=== PATIENT | male | born 1965 | race African-American/Black ===

== ENCOUNTER 2016-08-29 12:52 | Inpatient (IN) | payer SELFPAY ==
--- NOTE | 2016-08-29 13:24 | ER Document Report ---
ED Medical Screen (RME) - General Chief Complaint: High Blood Sugar Stated Complaint: WEAKNESS/BLOOD SUGAR PROBLEMS Time Seen by Provider: 08/29/16 13:23 Mode of Arrival: Ambulatory Information source: Patient Notes: 50-year-old male no previous history of diabetes presents with complaints of increased urination and increased thirst and a blood sugar check by family member noting high. Patient admits to one episode of vomiting I have greeted and performed a rapid initial assessment of this patient. A comprehensive ED assessment and evaluation of the patient, analysis of test results and completion of the medical decision making process will be conducted by additional ED providers. PHYSICAL EXAMINATION: GENERAL: Well-appearing, well-nourished and in no acute distress. HEAD: Atraumatic, normocephalic. EYES: Pupils equal round and reactive to light, extraocular movements intact, sclera anicteric, conjunctiva are normal. ENT: Nares patent, oropharynx clear without exudates. Moist mucous membranes. NECK: Normal range of motion, supple without lymphadenopathy LUNGS: Breath sounds clear to auscultation bilaterally and equal. No wheezes rales or rhonchi. HEART: Regular rate and rhythm without murmurs ABDOMEN: Soft, nontender, nondistended abdomen. No guarding, no rebound. No masses appreciated. Musculoskeletal: Normal range of motion, no pitting or edema. No cyanosis. NEUROLOGICAL: Cranial nerves grossly intact. Normal speech, normal gait. Normal sensory, motor exams PSYCH: Normal mood, normal affect. SKIN: Warm, Dry, normal turgor, no rashes or lesions noted. TRAVEL OUTSIDE OF THE [place] IN LAST 30 DAYS: No - Related Data Allergies/Adverse Reactions: No Known Allergies Allergy (Verified 08/29/16 12:57) Past Medical History Renal/ Medical History: Denies: Hx Peritoneal Dialysis Physical Exam - Vital signs Vitals: Temp Pulse Resp BP Pulse Ox 98.0 F 134 H 20 128/86 H 99 08/29/16 12:58 08/29/16 12:58 08/29/16 12:58 08/29/16 12:58 08/29/16 12:58 Course - Vital Signs Vital signs: Temp Pulse Resp BP Pulse Ox 98.0 F 134 H 20 128/86 H 99 08/29/16 12:58 08/29/16 12:58 08/29/16 12:58 08/29/16 12:58 08/29/16 12:58
[2016-08-29 14:04] LABS: ABSOLUTE BASOPHILS # (AUTO) 0.1 10^3/uL (0.0-0.2); ABSOLUTE MONOCYTES (AUTO) 0.5 10^3/uL (0.1-1.4); ABSOLUTE NEUT (AUTO) 11.7 10^3/uL (1.7-8.2); BASOPHILS % (AUTO) 0.5 % (0-2); HEMATOCRIT 59.5 % (37.9-51.0); HEMOGLOBIN 19.6 g/dL (13.5-17.0); HGB HCT DIFFERENCE -0.7; LYMPHOCYTES % (AUTO) 7.5 % (13-45); MEAN CORPUSCULAR HEMOGLOBIN 29.5 pg (27.0-33.4); MEAN CORPUSCULAR VOLUME 90 fl (80-97); MONOCYTES % (AUTO) 3.6 % (3-13); RED BLOOD COUNT 6.64 10^6/uL (4.35-5.55); RED CELL DISTRIBUTION WIDTH 13.7 % (11.5-14.0); SEGMENTED NEUTROPHILS % (AUTO) 88.4 % (42-78); WHITE BLOOD COUNT 13.2 10^3/uL (4.0-10.5)
[2016-08-29 14:22] LABS: ALANINE AMINOTRANSFERASE 27 U/L (21-72); ALKALINE PHOSPHATASE 141 U/L (38-126); ASPARTATE AMINO TRANSFERASE 20 U/L (17-59); BILIRUBIN,DIRECT 0.6 mg/dL (0.0-0.4); BLOOD UREA NITROGEN 28 mg/dL (7-20); CALCIUM 9.9 mg/dL (8.4-10.2); CHLORIDE 96 mmol/L (98-107); CREATININE RESULT 1.58 mg/dL (0.52-1.25); TOTAL PROTEIN 9.3 g/dL (6.3-8.2)
[2016-08-29 14:34] LABS: GLUCOSE 411 mg/dL (75-110)
[2016-08-29 14:35] LABS: ANION GAP 32 (5-19); CARBON DIOXIDE 9 mmol/L (22-30); POTASSIUM 6.1 mmol/L (3.6-5.0)
[2016-08-29] MEDS ORDERED: INSULIN REG, HUMAN 100 UNIT/ML 3 ML VIAL (PYX) IV ONE (14:39)
[2016-08-29] MEDS ORDERED: ONDANSETRON HCL INJ/PF 4 MG/2 ML SDV IV ONE (14:45)
--- NOTE | 2016-08-29 14:47 | ER Document Report ---
ED General - General Chief Complaint: High Blood Sugar Stated Complaint: WEAKNESS/BLOOD SUGAR PROBLEMS Time Seen by Provider: 08/29/16 13:23 Mode of Arrival: Ambulatory Notes: The patient is a 50-year-old male, no known past medical history, presents with 3 episodes of nonbloody emesis, nausea, generalized weakness and polyuria over the past 2 days. He has never been diagnosed with diabetes, but has not seen a primary care physician in several years. He denies fevers, cough, shortness of breath, and dysuria, flank pain, chest pain, shortness of breath or hematemesis. TRAVEL OUTSIDE OF THE [place] IN LAST 30 DAYS: No - Related Data Allergies/Adverse Reactions: No Known Allergies Allergy (Verified 08/29/16 12:57) Past Medical History - General Information source: Patient - Social History Smoking Status: Current Every Day Smoker Family History: Reviewed & Not Pertinent Patient has suicidal ideation: No Patient has homicidal ideation: No Renal/ Medical History: Denies: Hx Peritoneal Dialysis Review of Systems - Review of Systems Notes: REVIEW OF SYSTEMS: CONSTITUTIONAL: -fevers, -chills EENT: -eye pain, -difficulty swallowing, -nasal congestion CARDIOVASCULAR:-chest pain, -syncope. RESPIRATORY: -cough, -SOB GASTROINTESTINAL: -abdominal pain, +nausea, +vomiting, -diarrhea GENITOURINARY: -dysuria, -hematuria MUSCULOSKELETAL: -back pain, -neck pain SKIN: -rash or skin lesions. HEMATOLOGIC: -easy bruising or bleeding. LYMPHATIC: -swollen, enlarged glands. NEUROLOGICAL: -altered mental status or loss of consciousness, -headache, - neurologic symptoms PSYCHIATRIC: -anxiety, -depression. ALL OTHER SYSTEMS REVIEWED AND NEGATIVE. Physical Exam - Vital signs Vitals: Temp Pulse Resp BP Pulse Ox 98.0 F 134 H 20 128/86 H 99 08/29/16 12:58 08/29/16 12:58 08/29/16 12:58 08/29/16 12:58 08/29/16 12:58 - Notes Notes: PHYSICAL EXAMINATION: GENERAL: Uncomfortable, ill-appearing HEAD: Atraumatic, normocephalic. EYES: Pupils equal round and reactive to light, extraocular movements intact, sclera anicteric, conjunctiva are normal. ENT: nares patent, oropharynx clear without exudates. Dry mucous membranes. NECK: Normal range of motion, supple without lymphadenopathy LUNGS: Breath sounds clear to auscultation bilaterally and equal. No wheezes rales or rhonchi. HEART: Tachycardia, regular rhythm ABDOMEN: Soft, nontender, normoactive bowel sounds. No guarding, no rebound. No masses appreciated. EXTREMITIES: Normal range of motion, no pitting or edema. No cyanosis. NEUROLOGICAL: Cranial nerves grossly intact. Normal speech, normal gait. Normal sensory, motor, and reflex exams. PSYCH: Normal mood, normal affect. SKIN: Warm, Dry, normal turgor, no rashes or lesions noted. Course - Re-evaluation Re-evalutation: Patient with new onset diabetes and DKA. No source of infection seen yet that may have triggered the DKA. Will provide fluids and begin insulin drip. Pt requires Inpatient Admission for further treatment and evaluation of his DKA. 08/29/16 16:[address] Holt and he has accepted patient to IMCU. Urine is still pending. Will treat for UTI if positive. - Vital Signs Vital signs: Temp Pulse Resp BP Pulse Ox 98.0 F 134 H 23 H 128/86 H 100 08/29/16 12:58 08/29/16 12:58 08/29/16 18:00 08/29/16 12:58 08/29/16 18:00 - Laboratory Result Diagrams: 08/29/16 13:43 08/29/16 13:43 Laboratory results interpreted by me: 08/29/16 08/29/16 08/29/16 13:43 13:43 13:43 WBC 13.2 H RBC 6.64 H Hgb 19.6 H Hct 59.5 H Seg Neutrophils % 88.4 H Lymphocytes % 7.5 L Absolute Neutrophils 11.7 H VBG pH VBG HCO3 Potassium 6.1 H* Chloride 96 L Carbon Dioxide 9 L* Anion Gap 32 H BUN 28 H Creatinine 1.58 H Est GFR ( Amer) 57 L Est GFR (Non-Af Amer) 47 L Glucose 411 H* POC Glucose Hemoglobin A1c % > 14.0 H Direct Bilirubin 0.6 H Alkaline Phosphatase 141 H Total Protein 9.3 H Urine Protein Urine Glucose (UA) Urine Ketones Urine Blood 08/29/16 08/29/16 08/29/16 15:09 15:45 16:44 WBC RBC Hgb Hct Seg Neutrophils % Lymphocytes % Absolute Neutrophils VBG pH 7.03 L* VBG HCO3 9.2 L Potassium Chloride Carbon Dioxide Anion Gap BUN Creatinine Est GFR ( Amer) Est GFR (Non-Af Amer) Glucose POC Glucose 340 H Hemoglobin A1c % Direct Bilirubin Alkaline Phosphatase Total Protein Urine Protein 100 H Urine Glucose (UA) >=500 H Urine Ketones 80 H Urine Blood MODERATE H 08/29/16 16:50 WBC RBC Hgb Hct Seg Neutrophils % Lymphocytes % Absolute Neutrophils VBG pH VBG HCO3 Potassium Chloride Carbon Dioxide Anion Gap BUN Creatinine Est GFR ( Amer) Est GFR (Non-Af Amer) Glucose POC Glucose 282 H Hemoglobin A1c % Direct Bilirubin Alkaline Phosphatase Total Protein Urine Protein Urine Glucose (UA) Urine Ketones Urine Blood - Diagnostic Test Radiology reviewed: Image reviewed, Reports reviewed Radiology results interpreted by me: CXR: NAD Critical Care Note - Critical Care Note Total time excluding time spent on procedures (mins): 45 Discharge - Discharge Clinical Impression: DKA (diabetic ketoacidoses) Qualifiers: Diabetes mellitus type: due to underlying condition Diabetes mellitus complication detail: without coma Qualified Code(s): E08.10 - Diabetes mellitus due to underlying condition with ketoacidosis without coma Condition: Serious Disposition: ADMITTED INPATIENT Admitting Provider: Hospitalist - [facility] Admitted: [facility]
[2016-08-29 15:26] LABS: VENOUS BLOOD HCO3 9.2 mmol/L (20-32); VENOUS BLOOD PCO2 35.7 mmHg (35-63)
[2016-08-29 15:28] LABS: VENOUS BLOOD PH 7.03 (7.30-7.42)
[2016-08-29] MEDS: NORMAL SALINE 1000 ML 1,000 ML IV PRN ×4 (15:31→16:40)
[2016-08-29] MEDS ORDERED: ALBUTEROL SULFATE 0.083% NEB 2.5 MG/3 ML AMPUL NEB PRN (16:51)
[2016-08-29] MEDS ORDERED: ONDANSETRON 4 MG TAB.RAPDIS PO PRN (16:51)
[2016-08-29] MEDS ORDERED: ONDANSETRON HCL INJ/PF 4 MG/2 ML SDV IV PRN (16:51)
[2016-08-29] MEDS ORDERED: NORMAL SALINE 1000 ML 1,000 ML IV PRN (16:51)
[2016-08-29] MEDS ORDERED: ACETAMINOPHEN 325 MG TABLET PO PRN (16:51)
[2016-08-29] MEDS ORDERED: DEXTROSE 50%-WATER 25 GM/50 ML DISP.SYRIN IV PRN ×2 (16:55)
[2016-08-29] MEDS ORDERED: DEXTROSE 40% GEL 15 GM TUBE PO PRN ×2 (16:55)
[2016-08-29] MEDS ORDERED: GLUCAGON,HUMAN RECOMB 1 MG INJ IM PRN (16:55)
[2016-08-29] MEDS ORDERED: NORMAL SALINE 100 ML with INSULIN REGULAR, HUMAN 100 UNIT IV PRN ×2 (16:55)
--- NOTE | 2016-08-29 17:15 | PDOC H&P ---
History of Present Illness Admission Date/PCP: 08/29/2016. No primary care doctor Patient complains of: Elevated blood sugars History of Present Illness: JUAN JOSE BRIDGES is a 50 year old male with no past medical history until 3 days ago when he was feeling poorly and his significant other checked his blood sugar. It read as high. He has been having problems with polyuria, polydipsia , polyphagia and a 25 pound weight loss over the last 2 months. The patient reports is also had anorexia for the last 2 days. The patient was found to have diabetic ketoacidosis emergency room with a bicarbonate of 9 on his admission labs. He denies any fevers or chills. He denies any shortness of breath. He denies any viral syndromes recently. His mother is a type I diabetic. Past Medical History Medical History: None Cardiac Medical History: Reports: None Pulmonary Medical History: Reports: None EENT Medical History: Reports: None Neurological Medical History: Reports: None Endocrine Medical History: Reports: None Renal/ Medical History: Reports: None Malignancy Medical History: Reports: None GI Medical History: Reports: None Musculoskeltal Medical History: Reports: None Skin Medical History: Reports: None Psychiatric Medical History: Reports: None Traumatic Medical History: Reports: None Hematology: Reports: None Infectious Medical History: Reports: None Past Surgical History Past Surgical History: Reports: Orthopedic Surgery - Knee surgery Social History Information Source: Patient Lives with: Spouse/Significant other Smoking Status: Current Every Day Smoker Frequency of Alcohol Use: Rare Hx Recreational Drug Use: No Drugs: None Hx Prescription Drug Abuse: No - Advance Directive Resuscitation Status: Full Code Family History Family History: Mother 72 alive and has diabetes. Father at age 54 from suicide. Parental Family History Reviewed: Yes Children Family History Reviewed: No Sibling(s) Family History Reviewed.: No Medication/Allergy Allergies/Adverse Reactions: No Known Allergies Allergy (Verified 08/29/16 12:57) Review of Systems Constitutional: PRESENT: weight loss - 25 pounds over the last 2 months.. ABSENT: chills, fever(s), headache(s) Eyes: ABSENT: visual disturbances Ears: ABSENT: hearing changes Cardiovascular: ABSENT: chest pain, dyspnea on exertion, edema, orthropnea, palpitations Respiratory: ABSENT: cough, hemoptysis Gastrointestinal: ABSENT: abdominal pain, constipation, diarrhea, hematemesis, hematochezia, nausea, vomiting Genitourinary: PRESENT: other - Polyuria. ABSENT: dysuria, hematuria Musculoskeletal: ABSENT: joint swelling Integumentary: ABSENT: rash, wounds Neurological: ABSENT: abnormal gait, abnormal speech, confusion, dizziness, focal weakness, syncope Psychiatric: ABSENT: anxiety, depression Endocrine: PRESENT: polydipsia, polyuria. ABSENT: cold intolerance, heat intolerance Hematologic/Lymphatic: ABSENT: easy bleeding, easy bruising Physical Exam Vital Signs: Temp Pulse Resp BP Pulse Ox 98.0 F 134 H 20 128/86 H 99 08/29/16 12:58 08/29/16 12:58 08/29/16 12:58 08/29/16 12:58 08/29/16 12:58 Intake & Output 08/28/16 08/29/16 08/30/16 06:59 06:59 06:59 Weight 71.8 kg General appearance: PRESENT: no acute distress Head exam: PRESENT: atraumatic, normocephalic Eye exam: PRESENT: conjunctiva pink, EOMI, PERRLA. ABSENT: scleral icterus Ear exam: PRESENT: normal external ear exam Mouth exam: PRESENT: moist, tongue midline Neck exam: ABSENT: carotid bruit, JVD, lymphadenopathy, thyromegaly Respiratory exam: PRESENT: clear to auscultation [place]anna. ABSENT: rales, rhonchi, wheezes Cardiovascular exam: PRESENT: RRR. ABSENT: diastolic murmur, rubs, systolic murmur Pulses: PRESENT: normal dorsalis pedis pul Vascular exam: PRESENT: normal capillary refill GI/Abdominal exam: PRESENT: normal bowel sounds, soft. ABSENT: distended, guarding, mass, organolmegaly, rebound, tenderness Rectal exam: PRESENT: deferred Extremities exam: ABSENT: calf tenderness, clubbing, pedal edema Neurological exam: PRESENT: alert, awake, oriented to person, oriented to place , oriented to time, oriented to situation, CN II-XII grossly intact. ABSENT: motor sensory deficit Psychiatric exam: PRESENT: appropriate affect, normal mood Skin exam: PRESENT: dry, intact, warm. ABSENT: cyanosis, rash Results Laboratory Results: 08/29/16 13:43 08/29/16 13:43 08/29/16 08/29/16 08/29/16 13:43 13:43 15:09 WBC 13.2 H RBC 6.64 H Hgb 19.6 H Hct 59.5 H MCV 90 MCH 29.5 MCHC 33.0 RDW 13.7 Plt Count 273 Seg Neutrophils % 88.4 H Lymphocytes % 7.5 L Monocytes % 3.6 Eosinophils % 0.0 Basophils % 0.5 Absolute Neutrophils 11.7 H Absolute Lymphocytes 1.0 Absolute Monocytes 0.5 Absolute Eosinophils 0.0 Absolute Basophils 0.1 VBG pH 7.03 L* VBG pCO2 35.7 VBG HCO3 9.2 L VBG Base Excess -21.0 Sodium 137.0 Potassium 6.1 H* Chloride 96 L Carbon Dioxide 9 L* Anion Gap 32 H BUN 28 H Creatinine 1.58 H Est GFR ( Amer) 57 L Est GFR (Non-Af Amer) 47 L Glucose 411 H* Calcium 9.9 Total Bilirubin 1.0 AST 20 ALT 27 Alkaline Phosphatase 141 H Total Protein 9.3 H Albumin 5.0 Assessment & Plan - Diagnosis (1) DKA (diabetic ketoacidoses) Qualifiers: Diabetes mellitus type: due to underlying condition Diabetes mellitus complication detail: without coma Qualified Code(s): E08.10 - Diabetes mellitus due to underlying condition with ketoacidosis without coma Is this a current diagnosis for this admission?: YesPlan: Patient has newly diagnosed diabetes. We will start on insulin drip and IV fluids. We'll check chemistries every 4 hours. He is family history of diabetes but no other medical problems. - Time Time Spent: 30 to 50 Minutes - Inpatient Certification Medical Necessity: Need For IV Fluids
[2016-08-29 17:33] LABS: APPEARANCE,URINE CLEAR; BILIRUBIN,URINE NEGATIVE (NEGATIVE); GLUCOSE, URINE >=500 mg/dL (NEGATIVE); KETONES,URINE 80 mg/dL (NEGATIVE); LEUKOCYTE ESTERASE,URINE NEGATIVE (NEGATIVE); NITRITE,URINE NEGATIVE (NEGATIVE); PROTEIN,URINE 100 mg/dL (NEGATIVE); URINE SPECIFIC GRAVITY 1.025; UROBILINOGEN,URINE NEGATIVE mg/dL (<2.0)
[2016-08-29] MEDS ORDERED: DEXTROSE 5%-1/2 NORMAL SALINE 1,000 ML IV PRN (19:21)
[2016-08-29 20:21] LABS: ANION GAP 17 (5-19); BLOOD UREA NITROGEN 25 mg/dL (7-20); CALCIUM 7.8 mg/dL (8.4-10.2); CHLORIDE 113 mmol/L (98-107); CREATININE RESULT 0.98 mg/dL (0.52-1.25); GLUCOSE 225 mg/dL (75-110); SODIUM 139.8 mmol/L (137-145)
[2016-08-29 20:39] LABS: POTASSIUM 5.1 mmol/L (3.6-5.0)
[2016-08-29 20:42] LABS: CARBON DIOXIDE 10 mmol/L (22-30)
[2016-08-29] MEDS: DEXTROSE 5%-1/2 NORMAL SALINE 1,000 ML IV PRN (23:23)
[2016-08-30 00:41] LABS: ANION GAP 11 (5-19); BLOOD UREA NITROGEN 23 mg/dL (7-20); CARBON DIOXIDE 16 mmol/L (22-30); CHLORIDE 113 mmol/L (98-107); CREATININE RESULT 0.94 mg/dL (0.52-1.25); GLUCOSE 134 mg/dL (75-110); POTASSIUM 4.9 mmol/L (3.6-5.0); SODIUM 140.2 mmol/L (137-145)
[2016-08-30] MEDS: DEXTROSE 5%-1/2 NORMAL SALINE 1,000 ML IV PRN (04:06)
[2016-08-30 04:48] LABS: ANION GAP 8 (5-19); BLOOD UREA NITROGEN 21 mg/dL (7-20); CARBON DIOXIDE 20 mmol/L (22-30); CHLORIDE 112 mmol/L (98-107); CREATININE RESULT 0.99 mg/dL (0.52-1.25); GLUCOSE 152 mg/dL (75-110); POTASSIUM 4.6 mmol/L (3.6-5.0); SODIUM 139.8 mmol/L (137-145)
[2016-08-30 04:58] LABS: HEMATOCRIT 43.8 % (37.9-51.0); HGB HCT DIFFERENCE 1.5; MEAN CORPUSCULAR HEMOGLOBIN 29.7 pg (27.0-33.4); MEAN CORPUSCULAR HGB CONC 34.4 g/dL (32.0-36.0); RED BLOOD COUNT 5.09 10^6/uL (4.35-5.55); RED CELL DISTRIBUTION WIDTH 13.2 % (11.5-14.0); WHITE BLOOD COUNT 10.5 10^3/uL (4.0-10.5)
[2016-08-30 05:07] LABS: HEMOGLOBIN 15.1 g/dL (13.5-17.0); MEAN CORPUSCULAR VOLUME 86 fl (80-97)
[2016-08-30] MEDS ORDERED: DEXTROSE 50%-WATER 25 GM/50 ML DISP.SYRIN IV PRN ×2 (05:27)
[2016-08-30] MEDS ORDERED: GLUCAGON,HUMAN RECOMB 1 MG INJ IM PRN (05:27)
[2016-08-30] MEDS ORDERED: DEXTROSE 40% GEL 15 GM TUBE PO PRN ×2 (05:27)
--- NOTE | 2016-08-30 08:18 | PDOC PROGRESS REPORT ---
Subjective Progress Note for:: 08/30/16 Subjective:: Patient feels generally better than he did on admission. He has no further vomiting. He still has some nausea. He denies fever, chills, chest pain, shortness of breath. Physical Exam Vital Signs: Temp Pulse Resp BP Pulse Ox 98.3 F 96 20 120/77 100 08/30/16 04:11 08/30/16 04:11 08/30/16 04:11 08/30/16 04:11 08/30/16 04:11 Intake & Output 08/29/16 08/30/16 08/31/16 06:59 06:59 06:59 Weight 73.4 kg GENERAL: No acute distress HEENT: Conjunctiva clear, nonicteric, moist mucous membranes, no JVD, midline trachea RESPIRATORY: Clear to auscultation bilaterally, no wheezes, no rhonchi CARDIAC: Regular rate and rhythm, no murmurs/gallops/rubs ABDOMEN: Soft, nondistended, nontender, positive bowel sounds, no rebound, no guarding EXTREMETIES: No edema, cyanosis, clubbing NEUROLOGIC: Alert, oriented to person/place/time, CN's grossly intact, no focal deficits SKIN: No rash, wounds PSYCH: Normal mood, normal affect Results Laboratory Results: 08/30/16 04:45 08/30/16 03:40 08/29/16 08/30/16 08/30/16 20:02 00:12 03:40 WBC RBC Hgb Hct MCV MCH MCHC RDW Plt Count Sodium 139.8 140.2 139.8 Potassium 5.1 H D 4.9 4.6 Chloride 113 H 113 H 112 H Carbon Dioxide 10 L* 16 L 20 L Anion Gap 17 11 8 BUN 25 H 23 H 21 H Creatinine 0.98 0.94 0.99 Est GFR ( Amer) > 60 > 60 > 60 Est GFR (Non-Af Amer) > 60 > 60 > 60 Glucose 225 H 134 H 152 H Calcium 7.8 L 8.0 L 8.0 L 08/30/16 08/30/16 03:40 04:45 WBC Cancelled 10.5 RBC Cancelled 5.09 Hgb Cancelled 15.1 D Hct Cancelled 43.8 MCV Cancelled 86 D MCH Cancelled 29.7 MCHC Cancelled 34.4 RDW Cancelled 13.2 Plt Count Cancelled 152 Sodium Potassium Chloride Carbon Dioxide Anion Gap BUN Creatinine Est GFR ( Amer) Est GFR (Non-Af Amer) Glucose Calcium Impressions: Chest X-Ray 08/29/16 14:45 IMPRESSION: NO ACUTE RADIOGRAPHIC FINDING IN THE CHEST. Assessment & Plan - Diagnosis (1) DKA (diabetic ketoacidoses) Qualifiers: Diabetes mellitus type: due to underlying condition Diabetes mellitus complication detail: without coma Qualified Code(s): E08.10 - Diabetes mellitus due to underlying condition with ketoacidosis without coma Is this a current diagnosis for this admission?: YesPlan: Patient has new onset type I diabetes. DKA has now resolved and insulin drip has been discontinued. Patient has been started on 70/30 insulin. Sliding scale insulin. Diabetes education. Hemoglobin A1c greater than 14.0. Patient will need to be set up with a outpatient primary care provider upon discharge. (2) Nausea Is this a current diagnosis for this admission?: YesPlan: When necessary Zofran. Likely related to DKA. - Time Time Spent with patient: 25-34 minutes Anticipated discharge: Home Within: within 24 hours
[2016-08-30] MEDS: HUM INSULIN NPH/REG INSULIN HM 100 UNIT/1 ML 3 ML SUBCUT SCH ×2 (08:26→17:55)
[2016-08-30] MEDS: INSULIN LISPRO 100 UNIT/ML 3 ML VIAL SUBCUT PRN ×2 (08:30→12:09)
[2016-08-30] MEDS: DOCUSATE SODIUM 100 MG CAPSULE PO SCH ×2 (09:59→18:09)
[2016-08-30] MEDS ORDERED: LANSOPRAZOLE 30 MG TAB.RAP.DR PO ONE (14:00)
[2016-08-30] MEDS ORDERED: MAGNESIUM HYDROXIDE SUSP 30 ML UDCUP PO PRN (18:02)
[2016-08-31 05:37] LABS: ANION GAP 10 (5-19); BLOOD UREA NITROGEN 14 mg/dL (7-20); CALCIUM 8.5 mg/dL (8.4-10.2); CARBON DIOXIDE 21 mmol/L (22-30); CHLORIDE 106 mmol/L (98-107); CREATININE RESULT 0.84 mg/dL (0.52-1.25); GLUCOSE 180 mg/dL (75-110); POTASSIUM 4.2 mmol/L (3.6-5.0); SODIUM 136.9 mmol/L (137-145)
[2016-08-31] MEDS ORDERED: LANSOPRAZOLE 30 MG TAB.RAP.DR PO SCH (06:00)
[2016-08-31] MEDS: HUM INSULIN NPH/REG INSULIN HM 100 UNIT/1 ML 3 ML SUBCUT SCH (07:56)
[2016-08-31 08:03] VITALS: BP 133/93
--- NOTE | 2016-08-31 08:37 | PDOC DISCHARGE SUMMARY ---
General - Admit/Disc Date/PCP Admission Date/Primary Care Provider: 08/29/16 16:51 Discharge Date: 08/31/16 - Discharge Diagnosis (1) DKA (diabetic ketoacidoses) Is this a current diagnosis for this admission?: Yes (2) Diabetes mellitus type I Is this a current diagnosis for this admission?: Yes (3) Nausea Is this a current diagnosis for this admission?: Yes - Additional Information Resuscitation Status: Full Code Discharge Diet: Diabetic Discharge Activity: Activity As Tolerated Home Medications: Docusate Sodium [Colace 100 mg Capsule] 100 mg PO BID #60 capsule 08/31/16 Hum Insulin NPH/Reg Insulin Hm [Insulin 70-30 (NPH/Reg) 100 unit/mL] 15 unit SUBCUT BIDACBS #1 vial 08/31/16 Insulin Regular, Human [Humulin R (Pyxis) Insulin 100 Unit/ml 3Ml] 0 unit SUBCUT .SLD SCALE #1 vial 08/31/16 History of Present Illness Patient complains of: Elevated blood sugar History of Present Illness: JUAN JOSE BRIDGES is a 50 year old male with no past medical history until 3 days ago when he was feeling poorly and his significant other checked his blood sugar. It read as high. He has been having problems with polyuria, polydipsia , polyphagia and a 25 pound weight loss over the last 2 months. The patient reports is also had anorexia for the last 2 days. The patient was found to have diabetic ketoacidosis emergency room with a bicarbonate of 9 on his admission labs. He denies any fevers or chills. He denies any shortness of breath. He denies any viral syndromes recently. His mother is a type I diabetic. Hospital Course Hospital Course: Patient was admitted for new onset diabetes with DKA. He was initially treated with insulin drip protocol until DKA was corrected. Patient has now been transitioned to 70/30 insulin. Blood glucose is stable at time of discharge on 70/30 insulin 15 units twice daily. He has been given diabetes education. He is also advised to cover blood sugar readings with sliding scale Humulin R insulin. [facility]. Physical Exam Vital Signs: Temp Pulse Resp BP Pulse Ox 98.1 F 114 H 18 133/93 H 100 08/31/16 07:50 08/31/16 07:50 08/31/16 07:50 08/31/16 07:50 08/31/16 07:50 Intake & Output 08/30/16 08/31/16 09/01/16 06:59 06:59 06:59 Intake Total 2138 1445 Balance 2138 1445 Weight 73.4 kg 73.7 kg GENERAL: No acute distress HEENT: Conjunctiva clear, nonicteric, moist mucous membranes, no JVD, midline trachea RESPIRATORY: Clear to auscultation bilaterally, no wheezes, no rhonchi CARDIAC: Regular rate and rhythm, no murmurs/gallops/rubs ABDOMEN: Soft, nondistended, nontender, positive bowel sounds, no rebound, no guarding EXTREMETIES: No edema, cyanosis, clubbing NEUROLOGIC: Alert, oriented to person/place/time, CN's grossly intact, no focal deficits SKIN: No rash, wounds PSYCH: Normal mood, normal affect Results Laboratory Results: 08/30/16 04:45 08/31/16 03:51 08/31/16 03:51 Sodium 136.9 L Potassium 4.2 Chloride 106 Carbon Dioxide 21 L Anion Gap 10 BUN 14 Creatinine 0.84 Est GFR ( Amer) > 60 Est GFR (Non-Af Amer) > 60 Glucose 180 H Calcium 8.5 Labs- Last Values WBC 10.5 10^3/uL (4.0-10.5) 08/30/16 04:45 RBC 5.09 10^6/uL (4.35-5.55) 08/30/16 04:45 Hgb 15.1 g/dL (13.5-17.0) D 08/30/16 04:45 Hct 43.8 % (37.9-51.0) 08/30/16 04:45 MCV 86 fl (80-97) D 08/30/16 04:45 MCH 29.7 pg (27.0-33.4) 08/30/16 04:45 MCHC 34.4 g/dL (32.0-36.0) 08/30/16 04:45 RDW 13.2 % (11.5-14.0) 08/30/16 04:45 Plt Count 152 10^3/uL (150-450) 08/30/16 04:45 Seg Neutrophils % 88.4 % (42-78) H 08/29/16 13:43 Lymphocytes % 7.5 % (13-45) L 08/29/16 13:43 Monocytes % 3.6 % (3-13) 08/29/16 13:43 Eosinophils % 0.0 % (0-6) 08/29/16 13:43 Basophils % 0.5 % (0-2) 08/29/16 13:43 Absolute Neutrophils 11.7 10^3/uL (1.7-8.2) H 08/29/16 13:43 Absolute Lymphocytes 1.0 10^3/uL (0.5-4.7) 08/29/16 13:43 Absolute Monocytes 0.5 10^3/uL (0.1-1.4) 08/29/16 13:43 Absolute Eosinophils 0.0 10^3/uL (0.0-0.6) 08/29/16 13:43 Absolute Basophils 0.1 10^3/uL (0.0-0.2) 08/29/16 13:43 Platelet Estimate Cancelled 08/30/16 03:40 VBG pH 7.03 (7.30-7.42) L* 08/29/16 15:09 VBG pCO2 35.7 mmHg (35-63) 08/29/16 15:09 VBG HCO3 9.2 mmol/L (20-32) L 08/29/16 15:09 VBG Base Excess -21.0 mmol/L 08/29/16 15:09 Sodium 136.9 mmol/L (137-145) L 08/31/16 03:51 Potassium 4.2 mmol/L (3.6-5.0) 08/31/16 03:51 Chloride 106 mmol/L (98-107) 08/31/16 03:51 Carbon Dioxide 21 mmol/L (22-30) L 08/31/16 03:51 Anion Gap 10 (5-19) 08/31/16 03:51 BUN 14 mg/dL (7-20) 08/31/16 03:51 Creatinine 0.84 mg/dL (0.52-1.25) 08/31/16 03:51 Est GFR ( Amer) > 60 (>60) 08/31/16 03:51 Est GFR (Non-Af Amer) > 60 (>60) 08/31/16 03:51 Glucose 180 mg/dL (75-110) H 08/31/16 03:51 POC Glucose 157 mg/dL (70-110) H 08/31/16 06:31 Hemoglobin A1c % > 14.0 % (4.7-6.0) H 08/29/16 13:43 Calcium 8.5 mg/dL (8.4-10.2) 08/31/16 03:51 Total Bilirubin 1.0 mg/dL (0.2-1.3) 08/29/16 13:43 Direct Bilirubin 0.6 mg/dL (0.0-0.4) H 08/29/16 13:43 Indirect Bilirubin Not Reportable 08/29/16 13:43 Neonat Total Bilirubin Not Reportable 08/29/16 13:43 AST 20 U/L (17-59) 08/29/16 13:43 ALT 27 U/L (21-72) 08/29/16 13:43 Alkaline Phosphatase 141 U/L (38-126) H 08/29/16 13:43 Total Protein 9.3 g/dL (6.3-8.2) H 08/29/16 13:43 Albumin 5.0 g/dL (3.5-5.0) 08/29/16 13:43 Urine Color YELLOW 08/29/16 16:44 Urine Appearance CLEAR 08/29/16 16:44 Urine pH 5.0 (5.0-9.0) 08/29/16 16:44 Ur Specific [place] 1.025 08/29/16 16:44 Urine Protein 100 mg/dL (NEGATIVE) H 08/29/16 16:44 Urine Glucose (UA) >=500 mg/dL (NEGATIVE) H 08/29/16 16:44 Urine Ketones 80 mg/dL (NEGATIVE) H 08/29/16 16:44 Urine Blood MODERATE (NEGATIVE) H 08/29/16 16:44 Urine Nitrite NEGATIVE (NEGATIVE) 08/29/16 16:44 Urine Bilirubin NEGATIVE (NEGATIVE) 08/29/16 16:44 Urine Urobilinogen NEGATIVE mg/dL (<2.0) 08/29/16 16:44 Ur Leukocyte Esterase NEGATIVE (NEGATIVE) 08/29/16 16:44 Urine WBC (Auto) 0 /HPF 08/29/16 16:44 Urine Mucus (Auto) RARE /LPF 08/29/16 16:44 Urine Ascorbic Acid NEGATIVE (NEGATIVE) 08/29/16 16:44 Slides for Path Review Cancelled 08/30/16 03:40 Impressions: Chest X-Ray 08/29/16 14:45 IMPRESSION: NO ACUTE RADIOGRAPHIC FINDING IN THE CHEST. Qualifiers PATEINT BEING DISCHARGED WITH ANY OF THE FOLLOWING DIAGNOSIS?: No Plan Discharge Plan: Follow-up at [facility] as soon as possible. Time Spent: Less than 30 Minutes
[2016-08-31] MEDS: DOCUSATE SODIUM 100 MG CAPSULE PO SCH (09:42)
== END 2016-08-31 10:14 | disposition home or self-care (01) | DRG 639 ==
LOC: ER 12:52 → EH 16:51 → UNDOADMIN 17:17 → EH 17:17 → 3N 20:21
PROVIDERS: ADMIT Internal Medicine; ATTEND Internal Medicine
DX: E10.10 Type 1 diabetes mellitus with ketoacidosis without coma (principal); F17.200 Nicotine dependence, unspecified, uncomplicated; Z79.4 Long term (current) use of insulin; Z83.3 Family history of diabetes mellitus
CPT/HCPCS: 36415; 71010; 80048; 80053; 81001; 82010; 82803; 82962; 83036; 85025; 85027; 96361; 96374; 99291; J1815; J2405; J3490; J7030

== ENCOUNTER 2019-12-05 01:16 | Emergency (ER) | payer SELFPAY ==
--- NOTE | 2019-12-05 01:57 | ER Document Report ---
ED General - General Chief Complaint: Skin Problem Stated Complaint: JOINT PAIN Time Seen by Provider: 12/05/19 01:51 Mode of Arrival: Ambulatory Information source: Patient Notes: 12/05/19 01:27 - ED Nursing Note by SHAKA KAT Num: [id number] : 1965 Patient Age: 54 pt reports wednesday afternoon pt developed pain in bilateral shoulders and bilat eral knees. today pt rt arm is sl reddened and warm to touch. pt denies any injury/trauma to area. pt hasn't had this before. Initialized on 12/05/19 01:27 - END OF NOTE 54-year-old black male arrives with 1 week history of achy arms and legs and nausea and poor appetite and malaise. Patient had DKA when he was diagnosed with diabetes over 3 years ago. He cannot remember having symptoms like this over the last 2 to 3 years. His does recall this occurred when he was first diagnosed. Patient's tongue is very dry and he is very drowsy. His lips are dry he is tachycardic. Patient is IDDM but does not check his blood sugars routinely or regularly. TRAVEL OUTSIDE OF THE [place] IN LAST 30 DAYS: No - HPI Onset: Last week Onset/Duration: Persistent, Worse Quality of pain: Achy Severity: Moderate Pain Level: 3 Associated symptoms: Nausea, Weakness Exacerbated by: Movement Similar symptoms previously: No Recently seen / treated by doctor: No - Related Data Allergies/Adverse Reactions: No Known Allergies Allergy (Verified 12/05/19 01:45) Home Medications: humulin 70/30, Past Medical History - General Information source: Patient - Social History Smoking Status: Never Smoker Cigarette use (# per day): No Chew tobacco use (# tins/day): No Smoking Education Provided: No Frequency of alcohol use: Occasional Lives with: Family Family History: Reviewed & Not Pertinent Patient has homicidal ideation: No Endocrine Medical History: Reports: Hx Diabetes Mellitus Type 1 Renal/ Medical History: Denies: Hx Peritoneal Dialysis Psychiatric Medical History: Denies: Hx Depression Past Surgical History: Reports: Hx Orthopedic Surgery - Knee surgery Review of Systems - Review of Systems Constitutional: See HPI, Malaise, Weakness EENT: No symptoms reported, Blurred vision Cardiovascular: No symptoms reported Respiratory: No symptoms reported Gastrointestinal: No symptoms reported Genitourinary: No symptoms reported Male Genitourinary: No symptoms reported Musculoskeletal: No symptoms reported Skin: No symptoms reported Hematologic/Lymphatic: No symptoms reported Neurological/Psychological: No symptoms reported Physical Exam - Vital signs Vitals: Temp Pulse Resp BP Pulse Ox 98.0 F 130 H 20 128/89 H 100 12/05/19 01:22 12/05/19 01:22 12/05/19 01:22 12/05/19 01:22 12/05/19 01:22 Interpretation: Hypertensive, Tachycardic - HEENT Head: Normocephalic, Atraumatic Eyes: Normal Conjunctiva: Injected - bilateral Extraocular movements intact: Yes Pupils: PERRL Sinus: Normal Nasal: Normal Mouth/Lips: Other - dry Mucous membranes: Dry Pharynx: Erythema Neck: Normal - Respiratory Respiratory status: Labored Chest status: Nontender Breath sounds: Decreased air movement Chest palpation: Normal - Cardiovascular Rhythm: Tachycardia Heart sounds: Normal auscultation Murmur: No - Abdominal Inspection: Normal Distension: No distension Bowel sounds: Normal Tenderness: Nontender Organomegaly: No organomegaly - Rectal Prostate: Other - deferred - Genitourinary Scrotum: Other - deferred - Back Back: Normal - Extremities General upper extremity: Normal inspection General lower extremity: Normal inspection - Neurological Neuro grossly intact: Yes Cognition: Confused Pedro Coma Scale Eye Opening: Spontaneous Pedro Coma Scale Verbal: Oriented [place] Coma Scale Motor: Obeys Commands Pedro Coma Scale Total: 15 Speech: Normal Cranial nerves: Normal Motor strength normal: LUE, RUE, LLE, RLE - Psychological Associated symptoms: Flat affect - Skin Skin Temperature: Warm Skin Moisture: Dry Skin Turgor: Tenting Course - Vital Signs Vital signs: Temp Pulse Resp BP Pulse Ox 98.0 F 130 H 25 H 142/98 H 96 12/05/19 01:22 12/05/19 01:22 12/05/19 05:01 12/05/19 05:01 12/05/19 05:01 - Laboratory Result Diagrams: 12/05/19 02:16 12/05/19 02:16 Laboratory results interpreted by me: 12/05/19 12/05/19 12/05/19 02:10 02:16 02:16 WBC 16.5 H Lymph % (Auto) 5.6 L Absolute Neuts (auto) 13.7 H Absolute Monos (auto) 1.7 H Seg Neutrophils % 83.4 H ABG pO2 ABG HCO3 ABG Total CO2 ABG O2 Saturation Sodium 134.3 L Potassium 5.1 H Chloride 95 L Carbon Dioxide 20 L BUN 28 H Glucose 342 H POC Glucose 331 H Alkaline Phosphatase 148 H Urine Glucose (UA) Urine Ketones 12/05/19 12/05/19 02:46 03:13 WBC Lymph % (Auto) Absolute Neuts (auto) Absolute Monos (auto) Seg Neutrophils % ABG pO2 55.9 L ABG HCO3 18.8 L ABG Total CO2 19.8 L ABG O2 Saturation 87.9 L Sodium Potassium Chloride Carbon Dioxide BUN Glucose POC Glucose Alkaline Phosphatase Urine Glucose (UA) >=500 H Urine Ketones 80 H - Diagnostic Test Radiology reviewed: Reports reviewed - EKG Interpretation by Me EKG shows normal: Sinus rhythm Rate: Tachycardia Rhythm: NSR - no ST elevation or depressions and no T wave elevation or depressions ans axis wnl Discharge - Discharge Clinical Impression: Dehydration, Urine ketones, Hyperglycemia Clinical Impression: (Ruled Out): DKA (diabetic ketoacidoses) Condition: Fair Disposition: HOME, SELF-CARE Additional Instructions: Encourage fluids like water or Pedialyte. Take medicines as directed return to ER if symptoms persist or worsen take antibiotics as directed. Prescriptions: Levofloxacin [Levaquin 500 mg Tablet] 500 mg PO DAILY #10 tablet
[2019-12-05] MEDS ORDERED: ONDANSETRON HCL INJ/PF 4 MG/2 ML SDV IV ONE (02:02)
[2019-12-05] MEDS: NORMAL SALINE 1000 ML 1,000 ML IV PRN ×2 (02:22→02:30)
[2019-12-05 02:24] LABS: ABSOLUTE BASOPHILS # (AUTO) 0.1 10^3/uL (0.0-0.2); ABSOLUTE LYMPHOCYTES (AUTO) 0.9 10^3/uL (0.5-4.7); ABSOLUTE MONOCYTES (AUTO) 1.7 10^3/uL (0.1-1.4); ABSOLUTE NEUT (AUTO) 13.7 10^3/uL (1.7-8.2); BASOPHILS % (AUTO) 0.8 % (0-2); HEMATOCRIT 48.1 % (37.9-51.0); HEMOGLOBIN 16.3 g/dL (13.5-17.0); LYMPHOCYTES % (AUTO) 5.6 % (13-45); MEAN CORPUSCULAR HGB CONC 33.9 g/dL (32.0-36.0); MEAN CORPUSCULAR VOLUME 88 fl (80-97); MONOCYTES % (AUTO) 10.2 % (3-13); PLATELET COUNT 194 10^3/uL (150-450); RED BLOOD COUNT 5.45 10^6/uL (4.35-5.55); RED CELL DISTRIBUTION WIDTH 12.9 % (11.5-14.0); SEGMENTED NEUTROPHILS % (AUTO) 83.4 % (42-78); TOTAL CELLS COUNTED % (AUTO) 100 %; WHITE BLOOD COUNT 16.5 10^3/uL (4.0-10.5)
[2019-12-05 02:45] LABS: ALBUMIN 4.3 g/dL (3.5-5.0); ALKALINE PHOSPHATASE 148 U/L (38-126); ASPARTATE AMINO TRANSFERASE 22 U/L (17-59); BILIRUBIN,DIRECT 0.1 mg/dL (0.0-0.4); BILIRUBIN,TOTAL 1.1 mg/dL (0.2-1.3); BLOOD UREA NITROGEN 28 mg/dL (7-20); CALCIUM 9.8 mg/dL (8.4-10.2); GLUCOSE 342 mg/dL (75-110); POTASSIUM 5.1 mmol/L (3.6-5.0); TOTAL PROTEIN 7.7 g/dL (6.3-8.2)
[2019-12-05 02:50] LABS: CARBON DIOXIDE 20 mmol/L (22-30); CHLORIDE 95 mmol/L (98-107)
[2019-12-05 02:52] LABS: ANION GAP 19 (5-19)
[2019-12-05 03:05] LABS: ARTERIAL BLOOD BASE EXCESS -6.1 mmol/L; ARTERIAL BLOOD FIO2 ROOM AIR; ARTERIAL BLOOD H2CO3 1.06 mmol/L (1.05-1.35); ARTERIAL BLOOD HCO3 18.8 mmol/L (20-24); ARTERIAL BLOOD O2 SATURATION 87.9 % (94-98); ARTERIAL BLOOD PCO2 35.1 mmHg (35-45); ARTERIAL BLOOD PH 7.35 (7.35-7.45); ARTERIAL BLOOD PO2 55.9 mmHg (80-100); ARTERIAL BLOOD TOTAL CO2 19.8 mmol/L (23-27)
--- NOTE | 2019-12-05 03:16 | RADIOLOGY REPORT (SQ) ---
CHEST X-RAY 1 VIEW on 12/05/2019 at 2:46 AM CLINICAL INDICATION: Diabetic ketoacidosis COMPARISON: 08/29/2016 FINDINGS: The lungs are clear. Cardiac, hilar and mediastinal contours are within normal limits. Pulmonary vascularity is within normal limits. No bony abnormality is noted. IMPRESSION: No active disease.
[2019-12-05 03:29] LABS: APPEARANCE,URINE CLEAR; BILIRUBIN,URINE NEGATIVE (NEGATIVE); COLOR,URINE YELLOW; GLUCOSE, URINE >=500 mg/dL (NEGATIVE); KETONES,URINE 80 mg/dL (NEGATIVE); LEUKOCYTE ESTERASE,URINE NEGATIVE (NEGATIVE); NITRITE,URINE NEGATIVE (NEGATIVE); PROTEIN,URINE NEGATIVE (NEGATIVE); URINE SPECIFIC GRAVITY 1.031; UROBILINOGEN,URINE NEGATIVE mg/dL (<2.0)
[2019-12-05] MEDS ORDERED: KETOROLAC TROMETHAMINE INJ/PF 30 MG/1 ML SDV IV ONE (03:53)
[2019-12-05] MEDS ORDERED: NORMAL SALINE 1000 ML 1,000 ML IV ONE (03:56)
[2019-12-05] MEDS ORDERED: CEFTRIAXONE INJ 1000 MG VIAL IV ONE (03:58)
[2019-12-05 06:09] VITALS: BP 138/96
--- NOTE | 2019-12-05 09:36 | EKG REPORT ---
SEVERITY:- ABNORMAL ECG - SINUS TACHYCARDIA CONSIDER LEFT VENTRICULAR HYPERTROPHY : Confirmed by: Shin Oglesby 05-Dec-2019 09:35:28
== END 2019-12-05 06:09 | disposition home or self-care (01) ==
LOC: ER 01:16
DX: E86.0 Dehydration (principal); E11.65 Type 2 diabetes mellitus with hyperglycemia; R82.4 Acetonuria; M25.511 Pain in right shoulder; M25.512 Pain in left shoulder; M25.561 Pain in right knee; M25.562 Pain in left knee; R11.0 Nausea; R63.0 Anorexia; R53.81 Other malaise; Z79.4 Long term (current) use of insulin
CPT/HCPCS: 93005; 99285; 96361; 96375; 96365; 36415; 87040; 82962; 82803; 83605; 85025; 80053; 81001; 84484; 71045; 93010; J1885; J0696; J2405; J7030